=== PATIENT | female | born 1995 | race Caucasian/White ===

== ENCOUNTER 2021-02-16 15:27 | Emergency (ER) | payer BC ==
[~2021-02-16] VITALS: Ht 167.7 cm; Wt 145.0 kg
--- NOTE | 2021-02-16 15:56 | ED GU-Female ---
General Chief Complaint: OB < 20 WEEKS Stated Complaint: VAGINAL BLEEDING, 13 WEEKS Source: patient, family Exam Limitations: no limitations History of Present Illness Date Seen by Provider: Feb 16, 2021 Time Seen by Provider: 15:43 Initial Comments Patient is a 26-year-old female G1, P0 who presents to the emergency department with a chief complaint of vaginal bleeding without cramping. Patient states she had onset of vaginal bleeding around 220 this afternoon when she went to the bathroom. She states she has had no difficulties with this thus far. Her OB is Dr. Holliday. Patient states that she had sex yesterday but no bleeding after that. No other complaints of trauma, falls, car accidents. Patient denies any recent illnesses such as fevers, chills, cough/Covid concerns. She is Covid vaccinated. No burning with urination, increased urinary frequency. No diarrhea. She does not take any daily medications. Continues to have no pelvic pain. She has not taken any medications today. All other review of systems reviewed and negative except as stated. Timing/Duration: this afternoon Severity/Quality: moderate Location: vaginal Associated Symptoms: denies symptoms Allergies and Home Medications Patient Home Medication List Home Medication List Reviewed: Yes Review of Systems Review of Systems Constitutional: see HPI EENTM: no symptoms reported Respiratory: no symptoms reported Cardiovascular: no symptoms reported Gastrointestinal: no symptoms reported Genitourinary: other (vaginal bleeding) : Yes Expected Date of Delivery: Aug 20, 2021 Musculoskeletal: no symptoms reported Skin: no symptoms reported All Other Systemes Reviewed Negative Unless Noted: Yes Physical Exam Vital Signs Capillary Refill : Height, Weight, BMI Height: '" Weight: lbs. oz. kg; BMI Method: General Appearance: WD/WN, no apparent distress HEENT: PERRL/EOMI Neck: normal inspection Cardiovascular: regular rate, rhythm Respiratory: lungs clear, normal breath sounds, no respiratory distress, no accessory muscle use Gastrointestinal: normal bowel sounds, non tender, soft Extremities: normal range of motion, non-tender, normal inspection Neurologic/Psychiatric: no motor/sensory deficits, alert, normal mood/affect, oriented x 3 Skin: normal color, warm/dry Progress/Results/Core Measures Suspected Sepsis SIRS Temperature: Pulse: Respiratory Rate: Laboratory Tests 02/16/21 17:38: White Blood Count 9.9 Blood Pressure / Mean: Laboratory Tests 02/16/21 17:38: Platelet Count 225 Results/Orders Lab Results Laboratory Tests Test 02/16/21 17:38 Range/Units White Blood Count 9.9 4.3-11.0 10^3/uL Red Blood Count 4.38 3.80-5.11 10^6/uL Hemoglobin 12.7 11.5-16.0 g/dL Hematocrit 40 35-52 % Mean Corpuscular Volume 91 80-99 fL Mean Corpuscular Hemoglobin 29 25-34 pg Mean Corpuscular Hemoglobin Concent 32 32-36 g/dL Red Cell Distribution Width 13.2 10.0-14.5 % Platelet Count 225 130-400 10^3/uL Mean Platelet Volume 11.5 9.0-12.2 fL Immature Granulocyte % (Auto) 1 % Neutrophils (%) (Auto) 72 42-75 % Lymphocytes (%) (Auto) 22 12-44 % Monocytes (%) (Auto) 4 0-12 % Eosinophils (%) (Auto) 1 0-10 % Basophils (%) (Auto) 0 0-10 % Neutrophils # (Auto) 7.1 1.8-7.8 10^3/uL Lymphocytes # (Auto) 2.2 1.0-4.0 10^3/uL Monocytes # (Auto) 0.4 0.0-1.0 10^3/uL Eosinophils # (Auto) 0.1 0.0-0.3 10^3/uL Basophils # (Auto) 0.0 0.0-0.1 10^3/uL Immature Granulocyte # (Auto) 0.1 0.0-0.1 10^3/uL My Orders Orders - MAUREEN MOSES MD Cbc With Automated Diff (02/16/21 15:51) Ua Culture If Indicated (02/16/21 15:51) Abo Rh Type (02/16/21 15:51) Us Ob Single Fetus<14 [id number] (02/16/21 15:51) Hcg,Quantitative (02/16/21 17:38) Vital Signs/I&O Capillary Refill : Progress Note : Time: 15:55 Progress Note Discussed with Ultrasound. They will be able to get a transvaginal ultrasound done today Diagnostic Imaging Diagonstic Imaging: Xray, Ultrasound Comments [facility]. [place], [place] NAME: HAYLEY LINARES [facility] REC#: [id number] PT STATUS: REG ER : 1995 PHYSICIAN: MAUREEN MOSES MD ADMIT DATE: 02/16/21/ER Draft Date of Exam:02/16/21 US OB SINGLE FETUS<14 [id number] PROCEDURE: US OB single fetus <14 wks. TECHNIQUE: Multiple real-time grayscale images were obtained over the gravid uterus in various projections. INDICATION: Vaginal bleeding. FINDINGS: Ultrasonography reveals may intrauterine gestation. Gestational sac has normal morphology. There is no evidence of kang-gestational hematoma. The placenta is posterior and reaches the cervical os. cardiac activity is present with a rate of 163 bpm. [place]-rump length is 7.8 cm. There is no evidence of maternal adnexal abnormality. IMPRESSION: Posterior marginal placenta which could contribute to bleeding. Otherwise, no gestational abnormality is identified with estimated age of 13 weeks and 6 days. Dictated on workstation # [id number] Dict: 02/16/21 1709 Trans: 02/16/21 1713 [facility] [id number] Interpreted by: FREDY GRANDE MD Electronically signed by: Departure Impression Primary Impression: Threatened Disposition: 01 HOME, SELF-CARE Condition: Stable Departure-Patient Inst. Decision time for Depature: 17:29 Referrals: GILBERT HOLLIDAY MD Patient Instructions: Threatened Miscarriage (DC) Add. Discharge Instructions: Drink plenty of fluids to stay well-hydrated. No more sex until after you follow-up with Dr. Holliday. Pelvic rest while you are having vaginal bleeding. Do not use tampons. Tylenol as needed for any mild cramping, 2 tablets every 6 hours as needed for pain. Come back to the emergency room for any increased vaginal bleeding especially with worsening abdominal pain/pelvic pain. Copy Copies To 1: GILBERT HOLLIDAY MD, KATHRYN M MD Feb 16, 2021 15:56
--- NOTE | 2021-02-16 17:13 | Diagnostic Imaging Report ---
PROCEDURE: US OB single fetus <14 wks. TECHNIQUE: Multiple real-time grayscale images were obtained over the gravid uterus in various projections. INDICATION: Vaginal bleeding. FINDINGS: Ultrasonography reveals may intrauterine gestation. Gestational sac has normal morphology. There is no evidence of kang-gestational hematoma. The placenta is posterior and reaches the cervical os. cardiac activity is present with a rate of 163 bpm. [place]-rump length is 7.8 cm. There is no evidence of maternal adnexal abnormality. IMPRESSION: Posterior marginal placenta which could contribute to bleeding. Otherwise, no gestational abnormality is identified with estimated age of 13 weeks and 6 days. Dictated by: Dictated on workstation # [id number]
[2021-02-16 17:44] LABS: BASOPHILS % (AUTO) 0 % (0-10); EOSINOPHILS # (AUTO) 0.1 10^3/uL (0.0-0.3); EOSINOPHILS % (AUTO) 1 % (0-10); HEMATOCRIT 40 % (35-52); HEMOGLOBIN 12.7 g/dL (11.5-16.0); LYMPHOCYTES # (AUTO) 2.2 10^3/uL (1.0-4.0); LYMPHOCYTES % (AUTO) 22 % (12-44); MEAN CORPUSCULAR HEMOGLOBIN 29 pg (25-34); MEAN CORPUSCULAR HGB CONC 32 g/dL (32-36); MEAN CORPUSCULAR VOLUME 91 fL (80-99); MEAN PLATELET VOLUME 11.5 fL (9.0-12.2); MONOCYTES # (AUTO) 0.4 10^3/uL (0.0-1.0); MONOCYTES % (AUTO) 4 % (0-12); NEUTROPHILS # (AUTO) 7.1 10^3/uL (1.8-7.8); NEUTROPHILS % (AUTO) 72 % (42-75); PLATELET COUNT 225 10^3/uL (130-400); WHITE BLOOD COUNT 9.9 10^3/uL (4.3-11.0)
[2021-02-16 19:20] LABS: BACTERIA,URINE TRACE /HPF; RBC,URINE TNTC /HPF; WBC,URINE 0-2 /HPF
[2021-02-16 19:27] LABS: BILIRUBIN,URINE NEGATIVE (NEGATIVE); CLARITY,URINE CLOUDY; COLOR,URINE RED; GLUCOSE, URINE (UA) NEGATIVE (NEGATIVE); KETONES,URINE NEGATIVE (NEGATIVE); LEUKOCYTE ESTERASE ,URINE NEGATIVE (NEGATIVE); NITRITE,URINE NEGATIVE (NEGATIVE); PH,URINE 6.5 (5-9); PROTEIN,URINE 2+ (NEGATIVE)
[2021-02-16 20:17] VITALS: BP 149/90
== END 2021-02-16 20:12 | disposition home or self-care (01) ==
LOC: ER 15:33 → EDBD 15:33 → ER 20:12
DX: O20.0 Threatened abortion (principal)
CPT/HCPCS: 36415; 76801; 81000; 84702; 85025; 86900; 86901

== ENCOUNTER → 2021-06-28 | Outpatient (CLI) | payer BC ==
--- NOTE | 2021-06-28 13:19 | Diagnostic Imaging Report ---
INDICATION: History of low lying placenta. Limited OB sonography performed in the routine fashion with transabdominal and transvaginal views. Comparison made to 02/16/2021. Cervical length was 5.0 cm. heart rate was 117 bpm. Fetus is in vertex presentation. Placenta is posterior with no evidence of previa at this time. The distance of the cervical os to the placental tip was about 8.5 cm. IMPRESSION: Live intrauterine fetus in vertex presentation. There is no evidence of placenta previa at this time. The study was otherwise limited. Dictated by: Dictated on workstation # [id number]
== END ==
LOC: RAD 12:00
PROVIDERS: ATTEND Nurse Practitioner Women's Health
DX: O44.43 Low lying placenta NOS or without hemorrhage, third trimester (principal)
CPT/HCPCS: 76817

== ENCOUNTER → 2021-07-25 | Outpatient (CLI) | payer BC ==
[2021-07-25 11:16] LABS: URINE CREATININE FOR RATIO 25 MG/DL (30-125)
[2021-07-25 11:17] LABS: URINE PROTEIN FOR RATIO ONLY < 6 MG/DL (6-12)
== END ==
LOC: LABNPT 10:47
DX: O14.93 Unspecified pre-eclampsia, third trimester (principal)
CPT/HCPCS: 82570; 84156

== ENCOUNTER → 2021-08-02 | Outpatient (CLI) | payer BC | LOC: LABNPT 10:21 | PROVIDERS: ATTEND Obstetrics & Gynecology | DX: O14.93 Unspecified pre-eclampsia, third trimester (principal) | CPT/HCPCS: 82570; 84156 ==

== ENCOUNTER → 2021-08-07 | Outpatient (CLI) | payer BC ==
[2021-08-07 11:12] LABS: BASOPHILS % (AUTO) 0 % (0-10); EOSINOPHILS % (AUTO) 0 % (0-10); HEMATOCRIT 39 % (35-52); HEMOGLOBIN 12.8 g/dL (11.5-16.0); LYMPHOCYTES # (AUTO) 2.2 10^3/uL (1.0-4.0); LYMPHOCYTES % (AUTO) 20 % (12-44); MEAN CORPUSCULAR HEMOGLOBIN 29 pg (25-34); MEAN CORPUSCULAR HGB CONC 33 g/dL (32-36); MEAN CORPUSCULAR VOLUME 87 fL (80-99); MEAN PLATELET VOLUME 11.7 fL (9.0-12.2); MONOCYTES # (AUTO) 0.5 10^3/uL (0.0-1.0); MONOCYTES % (AUTO) 5 % (0-12); NEUTROPHILS # (AUTO) 8.4 10^3/uL (1.8-7.8); NEUTROPHILS % (AUTO) 75 % (42-75); PLATELET COUNT 230 10^3/uL (130-400); WHITE BLOOD COUNT 11.2 10^3/uL (4.3-11.0)
[2021-08-07 11:49] LABS: ALBUMIN 3.4 GM/DL (3.2-4.5); POTASSIUM 4.1 MMOL/L (3.6-5.0)
[2021-08-07 11:50] LABS: CALCIUM 9.7 MG/DL (8.5-10.1)
[2021-08-07 11:52] LABS: TOTAL PROTEIN 6.8 GM/DL (6.4-8.2)
[2021-08-07 11:53] LABS: BILIRUBIN,TOTAL 0.3 MG/DL (0.1-1.0)
[2021-08-07 11:55] LABS: CREATININE SERUM 0.65 MG/DL (0.60-1.30)
[2021-08-07 11:58] LABS: URIC ACID 4.8 MG/DL (2.6-7.2)
== END ==
LOC: LAB 10:47
PROVIDERS: ATTEND Obstetrics & Gynecology
DX: O14.93 Unspecified pre-eclampsia, third trimester (principal)
CPT/HCPCS: 36415; 80053; 82570; 83615; 84156; 84550; 85025